=== PATIENT | male | born 1965 | race Caucasian/White ===

== ENCOUNTER 2021-07-25 15:52 | Emergency (ER) | payer OTHER ==
[2021-07-25 16:06] VITALS: BP 144/85; PULSE 69; TEMP 98; BMI 25.8
[2021-07-25] MEDS ORDERED: IBUPROFEN 600 MG TABLET (FP) PO ONE ×2 (17:27→17:34)
[2021-07-25] MEDS ORDERED: DIPHTH,PERTUSS(ACELL),TET 0.5 ML DISP.SYRIN IM ONE ×2 (17:27→17:33)
== END 2021-07-25 18:40 | disposition home or self-care (01) ==
LOC: JERFT 15:52
PROC: 2W3GX1Z Immobilization of Right Thumb using Splint (ICD-10-PCS; principal; 2021-07-25)
PROC: 3E0234Z Introduction of Serum, Toxoid and Vaccine into Muscle, Percutaneous Approach (ICD-10-PCS; 2021-07-25)
DX: S69.91XA Unspecified injury of right wrist, hand and finger(s), initial encounter (principal); S61.111A Laceration without foreign body of right thumb with damage to nail, initial encounter; W26.8XXA Contact with other sharp object(s), not elsewhere classified, initial encounter; Y93.H2 Activity, gardening and landscaping
CPT/HCPCS: 73140-TC-RT-FY; 90715; 99284-25

== ENCOUNTER 2023-12-04 17:26 | Observation (INO) | payer BC, OTHER ==
[2023-12-04] MEDS ORDERED: ACETAMINOPHEN 500 MG TABLET (FP) PO ONE (20:36)
[2023-12-04] MEDS ORDERED: KETOROLAC TROMETHAMINE 15 MG/ML VIAL IM ONE (20:36)
[2023-12-04] MEDS ORDERED: METHOCARBAMOL 750 MG TABLET PO ONE (20:36)
[2023-12-04] MEDS ORDERED: DEXAMETHASONE SOD PHOSPHATE 10 MG/1 ML VIAL IM ONE (20:36)
[2023-12-04] MEDS ORDERED: ACETAMINOPHEN 500 MG TABLET (FP) ONE (21:02)
[2023-12-04] MEDS ORDERED: DEXAMETHASONE SOD PHOSPHATE 10 MG/1 ML VIAL ONE (21:02)
[2023-12-04] MEDS ORDERED: KETOROLAC TROMETHAMINE 15 MG/ML VIAL ONE (21:02)
[2023-12-04] MEDS ORDERED: METHOCARBAMOL 500 MG TABLET ONE (21:02)
[2023-12-04] MEDS ORDERED: oxyCODONE HCL 5 MG TABLET PO ONE (23:03)
[2023-12-04] MEDS ORDERED: oxyCODONE HCL 5 MG TABLET ONE (23:05)
[2023-12-05 00:35] LABS: BASO % 0.4 % (0-2.0); EOS % 0.6 % (0-4.5); HEMATOCRIT 47.2 % (35.4-49); HEMOGLOBIN 16.1 GM/dL (11.7-16.9); LYMPH % 13.6 % (8-40); MCH 31.2 pg (25.7-33.7); MEAN CELL VOLUME 91.6 fl (80-96); MEAN PLT VOLUME 7.1 fl (7.5-11.1); MONO % 1.5 % (3.8-10.2); NEUT % 83.9 % (42.8-82.8); PLATELET COUNT 386 10^3/uL (134-434); RBC 5.15 M/mm3 (4.00-5.60); RDW 12.8 % (11.9-15.9); WHITE BLOOD COUNT 11.3 K/mm3 (4.0-10.0)
[2023-12-05 00:42] LABS: INR 1.02 (0.83-1.09); PROTHROMBIN TIME (PATIENT) 11.8 SEC (9.7-13.0)
[2023-12-05 00:44] LABS: ACTIVATED PTT 28.2 SECONDS (25.2-36.5)
[2023-12-05 00:53] LABS: CHLORIDE 105 mmol/L (98-107); SODIUM 133 mmol/L (136-145)
[2023-12-05 00:55] LABS: CALCIUM 9.3 mg/dL (8.5-10.1)
[2023-12-05 00:56] LABS: ALBUMIN 4.1 g/dl (3.4-5.0); BLOOD UREA NITROGEN 15.2 mg/dL (7-18); CO2 26 mmol/L (21-32); GLUCOSE,RANDOM 110 mg/dL (74-106)
[2023-12-05 00:59] LABS: CREATININE 1.3 mg/dL (0.55-1.3)
[2023-12-05 01:00] LABS: BILIRUBIN,TOTAL 0.7 mg/dL (0.2-1)
[2023-12-05 01:01] LABS: TOT PROT 8.6 g/dl (6.4-8.2)
[2023-12-05 01:02] LABS: ALK PHOS 76 U/L (45-117)
[2023-12-05 01:06] LABS: ANION GAP 2 mmol/L (4-13); POTASSIUM 7.7 mmol/L (3.5-5.1); SGOT/AST 95 U/L (15-37); SGPT/ALT 47 U/L (13-61)
[2023-12-05 02:32] LABS: POTASSIUM 4.7 mmol/L (3.5-5.1)
[2023-12-05 02:34] LABS: CALCIUM 9.2 mg/dL (8.5-10.1)
[2023-12-05 02:35] LABS: ALBUMIN 4.1 g/dl (3.4-5.0); BLOOD UREA NITROGEN 17.6 mg/dL (7-18)
[2023-12-05 02:38] LABS: CREATININE 1.2 mg/dL (0.55-1.3)
[2023-12-05 02:39] LABS: BILIRUBIN,TOTAL 0.7 mg/dL (0.2-1)
[2023-12-05 02:40] LABS: TOT PROT 7.8 g/dl (6.4-8.2)
[2023-12-05 04:11] VITALS: BMI 28.5
[2023-12-05] MEDS: ACETAMINOPHEN 500 MG TABLET (FP) PO SCH ×3 (05:22→18:14)
[2023-12-05] MEDS: PREGABALIN 25 MG CAPSULE PO SCH ×2 (05:23→14:45)
[2023-12-05] MEDS ORDERED: FLU VACCINE (FLULAVAL) PF 60 MCG/0.5 ML SYRINGE 2023-2024 IM ONE (09:00)
[2023-12-05] MEDS ORDERED: LIDOCAINE 4% PATCH TP SCH (10:00)
[2023-12-05 10:02] LABS: POTASSIUM 4.5 mmol/L (3.5-5.1)
[2023-12-05 10:10] LABS: CALCIUM 9.3 mg/dL (8.5-10.1); HEMATOCRIT 44.9 % (35.4-49); LYMPH % 8.8 % (8-40); MCHC 33.5 g/dl (32.0-35.9); MEAN CELL VOLUME 92.5 fl (80-96); MEAN PLT VOLUME 7.6 fl (7.5-11.1); MONO % 0.6 % (3.8-10.2); NEUT % 90.6 % (42.8-82.8); PLATELET COUNT 380 10^3/uL (134-434); RBC 4.86 M/mm3 (4.00-5.60); RDW 12.8 % (11.9-15.9); WHITE BLOOD COUNT 8.8 K/mm3 (4.0-10.0)
[2023-12-05 10:11] LABS: ALBUMIN 3.9 g/dl (3.4-5.0); BLOOD UREA NITROGEN 18.8 mg/dL (7-18); MAGNESIUM 2.6 mg/dL (1.8-2.4)
[2023-12-05 10:14] LABS: CREATININE 1.2 mg/dL (0.55-1.3)
[2023-12-05 10:15] LABS: BILIRUBIN,TOTAL 0.6 mg/dL (0.2-1); TOT PROT 7.6 g/dl (6.4-8.2)
[2023-12-05] MEDS: traMADol HCL 50 MG TABLET PO PRN ×2 (10:59→18:13)
[2023-12-05 15:19] VITALS: BP 135/79; PULSE 85; RESP 18; TEMP 97.7
[2023-12-05] MEDS ORDERED: LIDOCAINE PATCH REMOVAL MC SCH (22:00)
== END 2023-12-05 19:55 | disposition left against medical advice (07) ==
LOC: JER 17:26 → JERFT 17:26 → JERBED 23:37 → J8W 12-05 03:29
PROVIDERS: ADMIT Internal Medicine; ATTEND Nurse Practitioner Acute Care
PROC: 3E023GC Introduction of Other Therapeutic Substance into Muscle, Percutaneous Approach (ICD-10-PCS; principal; 2023-12-04)
PROC: 3E0233Z Introduction of Anti-inflammatory into Muscle, Percutaneous Approach (ICD-10-PCS; 2023-12-04)
DX: M51.37 Other intervertebral disc degeneration, lumbosacral region (principal); M54.9 Dorsalgia, unspecified; Z29.89 Encounter for other specified prophylactic measures
CPT/HCPCS: 36415; 72131-TC; 80053; 83735; 84100; 85025; 85610; 85651; 85730; 86140; 90686; 93005; 93010; 97116-GP; 97161-GP; 99285-25; G0378; J1100